=== PATIENT | male | born 1980 | race Caucasian/White ===

== ENCOUNTER 2021-03-19 11:25 | Emergency (ER) | payer OTHER ==
[2021-03-19] MEDS ORDERED: Acetaminophen 500 MG TAB ONE (12:42)
== END 2021-03-19 13:20 | disposition home or self-care (01) ==
LOC: ERS 11:25
DX: M25.512 Pain in left shoulder (principal); X50.0XXA Overexertion from strenuous movement or load, initial encounter; Y92.89 Other specified places as the place of occurrence of the external cause; Y99.0 Civilian activity done for income or pay

== ENCOUNTER 2022-12-11 10:56 | Emergency (ER) | payer OTHER ==
[2022-12-11] MEDS ORDERED: Ketorolac Tromethamine 30 MG/ML VIAL ONE (11:47)
[2022-12-11] MEDS ORDERED: Cyclobenzaprine 10 MG TAB ONE (11:47)
== END 2022-12-11 12:35 | disposition home or self-care (01) ==
LOC: ERS 10:56
DX: M54.50 Low back pain, unspecified (principal); I10 Essential (primary) hypertension; Z87.891 Personal history of nicotine dependence; X50.0XXA Overexertion from strenuous movement or load, initial encounter
CPT/HCPCS: 96372; 99283; J1885